=== PATIENT | female | born 1985 | race Caucasian/White ===

== ENCOUNTER 2016-07-19 10:33 | Emergency (ER) | payer BC ==
--- NOTE | ~2016-07-19 | ER ---
PATIENT'S NAME: SHELBY SOLIS [facility] AGE: 31 Y [address] ROOM: [place] [address] LOCATION: ED ADMIT DATE: 07/19/2016 ER/Outpatient Report DISCHARGE DATE: 07/19/2016 FAMILY PHYSICIAN: Monty Turner MD ATTENDING PHYSICIAN: Phi Posada Seen at 1100 hours. HISTORY OF PRESENT ILLNESS: The patient is a 31-year-old female who presents complaining of right upper quadrant pain started earlier today. The patient also complained of some loose stools in the last 24 hours. Pain quality valenzuela, is described as sharp. It did not radiate to the back. She denies any urinary symptoms of burning or frequency. ALLERGIES: KETEK AND LATEX. CURRENT MEDICATIONS: Include, 1. Clindamycin. 2. Zoloft. MEDICAL HISTORY: depression. She has had a recent upper respiratory infection. She does have a history of kidney stones requiring stents x4. SOCIAL HISTORY: Nonsmoker. Denies alcohol. Currently breast feeding. REVIEW OF SYSTEMS: GENERAL: No fevers or chills. HEAD AND EENT. Negative. RESPIRATORY: No shortness of breath or cough. CARDIOVASCULAR: No recent chest pain or palpitations. GASTROINTESTINAL: Right upper quadrant pain, it feels like it is underneath her ribs, minimal radiation to her back. She has had some loose stools. No vomiting. GENITOURINARY: No burning, frequency, urgency, or blood present. PHYSICAL EXAMINATION: VITAL SIGNS: Her temperature is 98, respiratory rate 20, pulse 88, and O2 sats 99%. GENERAL APPEARANCE: White female, well nourished, somewhat overweight, oriented x3. PATIENT'S NAME: SHELBY SOLIS [facility] AGE: 31 Y [address] ROOM: [place] [id number] LOCATION: [facility] ADMIT DATE: 07/19/2016 ER/Outpatient Report DISCHARGE DATE: 07/19/2016 FAMILY PHYSICIAN: Monty Turner MD ATTENDING PHYSICIAN: Phi Posada HEENT: Head: Normocephalic. Eyes: PERRL. No icterus. Nose: Airways patent. Septum midline. Mouth: Teeth in good repair. Buccal membranes moist. LUNGS: Clear throughout. HEART: Rhythm appeared regular. ABDOMEN: Some tenderness, right upper quadrant. No rebound. No guarding. Bowel sounds were active. EXTREMITIES: No peripheral edema. LABORATORY WORK: White count was 5.5, her hemoglobin 13.6, her ANC was 3.0. Urine was negative. CMS: She had slightly elevated AST at 75, lipase is 257, within normal values. Her ultrasound, right upper quadrant and gallbladder, tech reported that the gallbladder was contracted, did not appear to be inflamed and no presence of stones. ASSESSMENT: 1. Right upper quadrant pain. 2. History of kidney stones. 3. History of depression. PLAN: The patient while here in the emergency room was given 2 Hampton which did relieve her pain. She was discharged with a script for Hampton to take 1 or 2 every 4-6 hours. Clear liquids for the rest of the day. Low-fat diet. Recommend she follow up with her primary care over the next 48 hours, especially if the pain continues. ZULEMA DÍAZ FOR MD JENIFFER GOMEZ/karl /[id number] d: 07/20/16 0116 t: 08/11/16 0602, OUTPATIENT REPORT
[~2016-07-19 10:33] MED LIST: ACETAMINOPHEN325 MG PO; DERMOPLAST SPRA56 GM TOP; FEOSOL325 MG PO; FLAGYL250 MG; LANSINOH7 GM TOP; MYCELEX10 MG; NILSTAT60 ML PO; PERCOCET 5-3251 EACH PO; PRENATAL 1+1)(P1 TAB PO; PRILOSEC10 MG PO; SURFAK240 MG PO
[2016-07-19 11:24] LABS: BASOPHIL # 0.1 K/uL (0.0-0.2); BASOPHIL % 0.9 %; EOSINOPHIL # 0.1 K/uL (0.0-0.5); EOSINOPHIL % 2.4 %; HEMATOCRIT 41.6 % (33.0-46.0); HEMOGLOBIN 13.6 g/dL (11.0-15.0); IMMATURE GRANULOCYTE % 0.2 %; LYMPHOCYTE # 1.9 K/uL (0.8-4.0); LYMPHOCYTE % 34.2 %; MCH 27.5 pg (27.0-34.0); MCHC 32.7 gm/dL (32.0-36.5); MCV 84.2 fl (83.0-98.0); MONOCYTE # 0.4 K/uL (0.0-1.0); MONOCYTE % 6.9 %; NEUTROPHIL % 55.4 %; NRBC % 0 /100WBC (0-0.00); PLATELET COUNT 248 K/uL (150-450); RBC 4.94 M/uL (3.50-5.50); RDW-CV 13.3 % (11.9-14.6); WBC 5.5 K/uL (4.0-11.0)
[2016-07-19 11:24] LABS: BILIRUBIN URINE NEGATIVE (NEGATIVE); BLOOD URINE NEGATIVE /UL (NEGATIVE); COLOR URINE YELLOW (YELLOW); GLUCOSE URINE NEGATIVE (NEGATIVE); KETONE URINE NEGATIVE (NEGATIVE); LEUKOCYTES URINE NEGATIVE /UL (NEGATIVE); NITRITE URINE NEGATIVE (NEGATIVE); PROTEIN URINE NEGATIVE (NEGATIVE); TURBIDITY URINE CLEAR (CLEAR); UROBILINOGEN URINE NORMAL (NORMAL)
[2016-07-19 11:40] LABS: ALBUMIN 3.9 gm/dL (3.5-5.0); ALK PHOS 113 IU/L (33-138); ALT 68 IU/L (12-78); ANION GAP 9.9 (10.0-19.0); AST 75 IU/L (10-40); BLOOD UREA NITROGEN 16 mg/dL (6-24); CALCIUM 9.3 mg/dL (8.5-10.5); CHLORIDE 107 mMol/L (96-110); CO2 28 mMol/L (22-32); CREATININE 0.8 mg/dL (0.5-1.1); ESTIMATED GFR (MDRD EQUATION) > 60; POTASSIUM 3.9 mMol/L (3.7-5.1); SODIUM 141 mMol/L (135-145); TOTAL BILIRUBIN 0.6 mg/dL (0.0-1.5); TOTAL PROTEIN 7.9 g/dL (6.0-8.4)
[2016-07-29] MEDS ORDERED: ZOLOFT50 MG PO (16:41)
[2016-07-29] MEDS ORDERED: HYDROCODON-ACE1 EAC4 PO (16:41)
== END 2016-07-19 13:40 | disposition disaster alternative care site (69) ==
LOC: GMED 10:33
PROVIDERS: Emergency Medicine
DX: R10.11 Right upper quadrant pain (principal); Z91.040 Latex allergy status; Z88.8 Allergy status to other drugs, medicaments and biological substances

== ENCOUNTER 2016-07-28 14:38 | Emergency (ER) | payer BC ==
--- NOTE | ~2016-07-28 | CON ---
PATIENT'S NAME: MONTSE SOLIS [facility] AGE: 31 Y [address] ROOM: [place] [address] LOCATION: [facility] ADMIT DATE: 07/28/2016 Consultation DISCHARGE DATE: 07/28/2016 FAMILY PHYSICIAN: Monty Turner MD ATTENDING PHYSICIAN: Phi Posada REFERRING PHYSICIAN: Phi Posada MD CHIEF COMPLAINT: Abdominal pain. HISTORY OF PRESENT ILLNESS: The patient is a 31-year-old female who is obese and has 5 children. She had presented approximately 2 weeks ago with acute onset of abdominal pain, this was in the right upper quadrant. She had some nausea with this. She had an ultrasound performed that revealed no evidence of cholelithiasis. She continued to have an intermittent abdominal pain, even today had severe pain after eating. She says that she has had this small episode almost daily after eating, but it was worse today, she was concerned about her heart. She described no significant chest pain-type symptoms, all pain in the right upper quadrant. A CT scan was performed, which revealed a fatty liver, but no other significant abnormalities. She also had a HIDA scan which revealed an ejection fraction of 12%. She had normal white blood cell count, no fevers. Currently, her pain is much better. I was asked to see her regarding her gallbladder. She has no known history of liver disease. She has never had ulcers. Again, no fevers, no diverticulitis. She said that her pain seems to come on after eating. CURRENT MEDICATIONS: 1. Ahmeek. 2. Zoloft. ALLERGIES: LATEX AND KEFLEX. SOCIAL HISTORY: She is a nonsmoker and nondrinker. and has 5 children. CURRENT ILLNESSES: Depression. PHYSICAL EXAMINATION: GENERAL: She is an obese, 31-year-old female, in no acute distress. VITAL SIGNS: Pulse is 72, respiratory rate is 26, and temperature is 97.2. Her weight is 108 kilos. HEENT: Head is normocephalic, atraumatic. Eyes are anicteric. NECK: Supple. There is no lymphadenopathy. PATIENT'S NAME: MONTSE SOLIS [facility] AGE: 31 Y [address] ROOM: [place] [address] LOCATION: [facility] ADMIT DATE: 07/28/2016 Consultation DISCHARGE DATE: 07/28/2016 FAMILY PHYSICIAN: Monty Turner MD ATTENDING PHYSICIAN: Phi Posada HEART: Regular rate and rhythm. No murmurs audible. LUNGS: Clear to auscultation bilaterally. ABDOMEN: Obese. She does have mild tenderness to palpation in the right upper quadrant. No rebound or guarding. Bowel sounds are active. EXTREMITIES: Warm. No edema. NEUROLOGIC: Gross motor is intact. ASSESSMENT: Biliary colic. PLAN: I have discussed the findings with Montse. We discussed her symptomatology and her findings. This does seem consistent with biliary colic. Her pain is improving, and I think it is reasonable to allow her to be discharged. We will plan on performing an outpatient cholecystectomy. We did discuss surgery and risks of surgery, which include bleeding, infection, bile leak, bile duct injury, injury to other viscera, as well as ongoing symptomatology. We discussed chronically loose stools. She understands these risks and would like to proceed. We will schedule this in the near future. Currently, she will be able to go home. She has Ahmeek at home for her intermittent pain. If she would get unrelenting pain, fevers, nausea, and vomiting, would return for repeat evaluation. MD BALDOMERO VUONGO/modl /[id number] d: 07/28/16 2210 t: 08/07/16 1502, CONSULTATION REPORT
--- NOTE | ~2016-07-28 | ER ---
PATIENT'S NAME: SHELBY SOLIS [facility] AGE: 31 Y [address] ROOM: [place] [address] LOCATION: ED ADMIT DATE: 07/28/2016 ER/Outpatient Report DISCHARGE DATE: 07/28/2016 FAMILY PHYSICIAN: Monty Turner MD ATTENDING PHYSICIAN: Phi Posada CHIEF COMPLAINT: Abdominal pain. HISTORY OF PRESENT ILLNESS: The patient states that the pain started around 12:30 or 1 o'clock today. The pain has been persistent. It is aching and sharp in nature. It is located in the right upper abdomen and occasionally radiates through to her back. She has had similar pain in the past. She has been being evaluated for gallbladder issues. She recently did have a baby. She states she has taken some hydrocodone with no improvement. No other acute issues. PAST MEDICAL HISTORY: Documented on the record and reviewed by me. SOCIAL HISTORY: Documented on the record and reviewed by me. MEDICATIONS: Documented on the record and reviewed by me. ALLERGIES: DOCUMENTED ON THE RECORD AND REVIEWED BY ME. REVIEW OF SYSTEMS: All systems reviewed and negative except as noted in the HPI. PHYSICAL EXAMINATION: VITAL SIGNS: Blood pressure 148/95, pulse 72, respiratory rate is 26, temp 97.2, SpO2 is 97% on room air. Pain is rated at 7/10. GENERAL: An age appropriate female, in no obvious pain. No distress, sitting on the exam table. NEUROLOGIC: Awake and alert. GCS is 15. No focal deficits or asymmetry appreciated on exam. No cranial nerve deficits are obvious. HEENT: Normocephalic, atraumatic. Eyes are PERRL. Oropharynx is clear. NECK: Supple. Trachea is midline. CHEST: Heart is regular rate and rhythm with no murmurs. LUNGS: Clear to auscultation bilateral with no rhonchi, wheezes, or rales. ABDOMEN: Soft, obese, with no focal tenderness to palpation. No obvious masses. King's sign was equivocal. PATIENT'S NAME: SHELBY SOLIS [facility] AGE: 31 Y [address] ROOM: [place] [address] LOCATION: ED ADMIT DATE: 07/28/2016 ER/Outpatient Report DISCHARGE DATE: 07/28/2016 FAMILY PHYSICIAN: Monty Turner MD ATTENDING PHYSICIAN: Phi Posada BACK: Nontender to palpation throughout. No CVA tenderness. EXTREMITIES: Warm and well perfused. SKIN: Warm, dry, and intact. Note, abdominal and chest exam is limited by body habitus. LABORATORY DATA AND X-RAYS: CT scan of the abdomen was unremarkable except for fatty liver per Radiology. Labs: Serum lactate is 1.8. WBC 6.0, hemoglobin 13.7, platelets of 258. INR is 1.0. Amylase, lipase, GGT are 88, 427, and 47 respectively. HCG is below threshold. Sodium 143, potassium 3.8, chloride 108, CO2 is 23, BUN is 12, creatinine 0.8. GFR is greater than 60. Total bilirubin 0.3, AST of 81, ALT of 65. Procalcitonin is below threshold. Serum was negative. IMPRESSION: 1. Biliary colic. 2. Extremely mild pancreatitis. EMERGENCY DEPARTMENT COURSE: The patient was seen and evaluated as above. Abdominal pain was the chief concern. Given her history, hepatobiliary pathology is most likely. Within the last 2 weeks, she has had an ultrasound showing contracted gallbladder but no stones or cholecystitis. She had a HIDA scan on the , which showed delayed biliary emptying. Her pain is consistent with biliary colic versus extremely mild pancreatitis. Based on her labs and presentation, I did have Dr. Garcia, surgeon, evaluate the patient. We will let her go home. I will change her pain medication to Dilaudid. She received a 0.5 mg in the emergency department and had almost complete resolution of all of her symptoms. She was otherwise doing well. She is acceptable with this pain at this time. She will contact Dr. Garcia's office tomorrow if she has not heard from them regarding scheduling with a plan for elective cholecystectomy on . All questions were answered, and the patient was discharged in good condition. MD MY GOMEZ/karl /[id number] d: 07/28/162248 t: 03/28/17 0603, OUTPATIENT REPORT
[2016-07-28 15:10] LABS: BASOPHIL # 0.1 K/uL (0.0-0.2); BASOPHIL % 0.8 %; EOSINOPHIL # 0.1 K/uL (0.0-0.5); EOSINOPHIL % 1.5 %; HEMATOCRIT 40.2 % (33.0-46.0); HEMOGLOBIN 13.7 g/dL (11.0-15.0); IMMATURE GRANULOCYTE % 0.2 %; LYMPHOCYTE % 32.8 %; MCHC 34.1 gm/dL (32.0-36.5); MCV 82.2 fl (83.0-98.0); MONOCYTE # 0.4 K/uL (0.0-1.0); MONOCYTE % 6.7 %; MPV 9.5 fl (9.4-12.4); NEUTROPHIL # (ANC) 3.5 K/uL (1.8-7.8); NRBC % 0 /100WBC (0-0.00); PLATELET COUNT 258 K/uL (150-450); RBC 4.89 M/uL (3.50-5.50); RDW-CV 13.2 % (11.9-14.6)
[2016-07-28 15:24] LABS: PROTIME 10.2 SECONDS (9.6-11.1); PTT 29 SECONDS (25-32)
[2016-07-28 15:30] LABS: ALBUMIN 3.9 gm/dL (3.5-5.0); ALK PHOS 106 IU/L (33-138); ALT 65 IU/L (12-78); BLOOD UREA NITROGEN 12 mg/dL (6-24); CALCIUM 9.2 mg/dL (8.5-10.5); CHLORIDE 108 mMol/L (96-110); CO2 23 mMol/L (22-32); CREATININE 0.8 mg/dL (0.5-1.1); ESTIMATED GFR (MDRD EQUATION) > 60; SODIUM 143 mMol/L (135-145); TOTAL PROTEIN 7.8 g/dL (6.0-8.4)
[2016-07-28 15:32] LABS: ANION GAP 15.8 (10.0-19.0); AST 81 IU/L (10-40); POTASSIUM 3.8 mMol/L (3.7-5.1); TOTAL BILIRUBIN 0.3 mg/dL (0.0-1.5)
[2016-07-29] MEDS ORDERED: ZOLOFT50 MG PO (16:41)
[2016-07-29] MEDS ORDERED: HYDROCODON-ACE1 EAC4 PO (16:41)
== END 2016-07-28 18:00 | disposition disaster alternative care site (69) ==
LOC: GMED 14:38
PROVIDERS: Emergency Medicine
DX: K80.50 Calculus of bile duct without cholangitis or cholecystitis without obstruction (principal); K85.90 Acute pancreatitis without necrosis or infection, unspecified; F32.9 Major depressive disorder, single episode, unspecified; Z88.1 Allergy status to other antibiotic agents; Z91.040 Latex allergy status; Z79.899 Other long term (current) drug therapy
CPT/HCPCS: J1170; J2405; J7030; Q9967

== ENCOUNTER → 2016-07-30 | Day surgery (SDC) | payer BC ==
[~2016-07-30] VITALS: Ht 172.7 cm; Wt 124.0 kg
[~2016-07-30] MED LIST changes: +HYDROCODON-ACE1 EAC4 PO; +ZOLOFT50 MG PO
--- NOTE | ~2016-07-30 | OR ---
PATIENT'S NAME: SHELBY SOLIS [facility] AGE: 31 Y [address] ROOM: [place] [address] [place] [facility] [place]: 07/30/2016 OR/Procedure Report DISCHARGE DATE: FAMILY PHYSICIAN: Monty Turner MD ATTENDING PHYSICIAN: Mychal Mosquera SURGEON: Mychal Mosquera MD ARCHITECTURAL PROJECT CAPTAIN: Elpidio Seaman PA-C DATE OF PROCEDURE: 07/30/2016 PREOPERATIVE DIAGNOSIS: Biliary dyskinesia. POSTOPERATIVE DIAGNOSIS: Biliary dyskinesia. PROCEDURE PERFORMED: Laparoscopic cholecystectomy. FINDINGS: A critical window was able to be obtained. No stones were present. ESTIMATED BLOOD LOSS: 20 mL. COMPLICATIONS: None. INDICATIONS: The patient is a 31-year-old female who presented with abdominal pain, colicky in nature, with inability to eat. She was found to have an abnormal HIDA scan. We discussed cholecystectomy as well as other potential etiologies of her abdominal pain and risks of surgery which include bleeding, infection, ongoing pain, bile leak, bile duct injury, injury to other viscera, as well as chronic diarrhea. She understood the risks and elected to proceed. DESCRIPTION OF PROCEDURE: The patient was taken to the operating room. She was placed supine, given IV sedation, and subsequently intubated. The abdomen was prepped with ChloraPrep and sterilely draped. Local anesthetic was infiltrated just superior to the umbilicus. A transverse incision was created. The abdomen was elevated, Veress needle was inserted, and pneumoperitoneum was induced. Following this, a 5 mm trocar was inserted, followed by insertion of the camera. There was no injury from initial trocar placement. Three more trocars were then positioned; an 11 mm epigastric, and two 5 mm right subcostal ports. Skin overlying the peritoneum was first anesthetized prior to making the incisions. All 3 of these trocars were inserted under direct visualization. The gallbladder was grasped and was elevated over the dome of the liver. The liver was noted to be quite fatty. The infundibulum was then grasped and retracted inferiorly and laterally to expose the Calot triangle. The cystic duct and artery were dissected around circumferentially. A critical window was able to be obtained. Both of these structures were doubly clipped and divided. The gallbladder was then removed from the liver bed using electrocautery. This was grasped and brought out PATIENT'S NAME: SHELBY SOLIS [facility] AGE: 31 Y [address] ROOM: [place] [address] [place] [facility]: 07/30/2016 OR/Procedure Report DISCHARGE DATE: FAMILY PHYSICIAN: Monty Turner MD ATTENDING PHYSICIAN: Mychal Mosquera through the epigastric port site. The liver bed was then inspected. It appeared hemostatic. Clips appeared to be in good position on the cystic duct and artery. The area was irrigated. The fluid was removed. The pneumoperitoneum was released. Prior to releasing the pneumoperitoneum, we did use an Endo Close to close the epigastric incision. The pneumoperitoneum was released. All the trocars had been removed. The skin edges of all 4 trocar sites were closed with 4-0 Monocryl sutures. Steri-Strips and sterile dressings were placed. The patient was extubated and sent to Recovery in good condition. MYCHAL MOSQUERA MD BJO/modl /[id number] d: 07/30/161841 t: 08/07/16 1502, OPERATIVE SUMMARY
== END | disposition disaster alternative care site (69) ==
LOC: GPOC 07-29 13:00 → GSDC 09:54
PROC: 0FT44ZZ Resection of Gallbladder, Percutaneous Endoscopic Approach (ICD-10-PCS; principal; 2016-07-30)
DX: I89.8 Other specified noninfective disorders of lymphatic vessels and lymph nodes (principal); K82.8 Other specified diseases of gallbladder; J45.909 Unspecified asthma, uncomplicated; F32.9 Major depressive disorder, single episode, unspecified; E66.9 Obesity, unspecified; Z88.1 Allergy status to other antibiotic agents; Z91.040 Latex allergy status
CPT/HCPCS: J0694; J1100; J1170; J1885; J2001; J2405; J3010; J7120

== ENCOUNTER 2016-08-12 19:22 | Emergency (ER) | payer BC ==
--- NOTE | ~2016-08-12 | ER ---
PATIENT'S NAME: SHELBY SOLIS [facility] AGE: 31 Y [address] ROOM: [place] [address] LOCATION: [facility] ADMIT DATE: 08/12/2016 ER/Outpatient Report DISCHARGE DATE: 08/12/2016 FAMILY PHYSICIAN: Monty Turner MD ATTENDING PHYSICIAN: Angelika Canchola HISTORY OF PRESENT ILLNESS: A 31-year-old female, who presents with right upper quadrant pain that has been ongoing for 2 weeks. She denies any nausea; vomiting; diarrhea; blood in stool, vomit, or urine. Any constipation, fever, chills, or urinary symptoms. She says that this has been ongoing for a while. She was diagnosed with cholelithiasis and she recently had her gallbladder removed. She had a laparoscopic cholecystectomy done by Dr. Garcia. The patient says that she still has pain after her surgery. She had been back to see Dr. Garcia as well and she was told that it was probably just typical postop pain, but the patient says that she feels like she should be getting better at this time and she is not. She has been taking hydrocodone up until 3 days ago when she ran out. She reports that she has taken ibuprofen, but is not helping at this time. No other complaints at this time. No fever or chills. PAST MEDICAL HISTORY: Includes morbid obesity and asthma. PAST SURGICAL HISTORY: Includes cholecystectomy, kidney stone, and stents. SOCIAL HISTORY: She does not smoke, drink, or use any drugs. MEDICATIONS: Please see med list. ALLERGIES: KEFLEX AND LATEX. REVIEW OF SYSTEMS: Reviewed by me are negative with the exception of those discussed in the HPI. PHYSICAL EXAMINATION: VITAL SIGNS: Her height is 5 feet 8 inches, her weight is 127.6 kilos, her pulse is 78 beats per minute, respiratory rate is 20, blood pressure is 145/77, temperature is 97.9, and saturations are 97% on room air. GENERAL: The patient does not appear in any acute distress. She looks mildly uncomfortable, but nontoxic. She is not jaundiced or anything. HEENT: Pupils are equal and reactive to light. She has no scleral icterus. PATIENT'S NAME: SHELBY SOLIS [facility] AGE: 31 Y [address] ROOM: [place], [place] [address] LOCATION: [facility] ADMIT DATE: 08/12/2016 ER/Outpatient Report DISCHARGE DATE: 08/12/2016 FAMILY PHYSICIAN: Monty Turner MD ATTENDING PHYSICIAN: Angelika Canchola She is alert and oriented x4, walks into the ER and moves all extremities, got onto the bed herself. CHEST: She has no respiratory distress. She has normal breath sounds. No wheezing, rales, or rhonchi. Regular rate and rhythm. The patient feels warm and well perfused. Mildly hypertensive at 145/77. ABDOMEN: Where the trocar incisions are, they look clean and well healed. Some mild bruising, but she is mildly tender in the right upper quadrant. Really right over one of the incisions sites. It is not red. It is not warm to touch. There is no purulence or purulent drainage and there is no fluctuance either. She has no rebound or guarding. SKIN: Warm, dry, and intact. EMERGENCY ROOM COURSE: I discussed with the patient, concerns for something like biliary leak, etc.; however, she has no other symptoms except for pain. We did give her Amonate for pain, which the patient tolerated really well and she is feeling a lot better now. She was able to go to sleep while we waited for the rest of the labs. So, the chemistry showed sodium 142, potassium 3.8, chloride 108, CO2 25, anion gap 12.8, glucose 98, BUN 20, creatinine 0.9, alkaline phosphatase 103, AST 56, ALT 53, GFR greater than 60. Bilirubin was 0.2. White count was 6.8, H and H is 12.2/36.5, platelets are 258. No bandemia. Urine was unremarkable. Procalcitonin was less than 0.05. Lipase mildly elevated at 450, but not 3 times above the upper limit of normal. So, we would not consider that pancreatitis, plus she has no epigastric tenderness. Discussed this with the patient. I do also think this is just postop pain. We will give her script for some Amonate, but then she should follow up with Dr. Garcia. She understands the reasons to come back to the ER sooner. IMPRESSION: Right upper quadrant pain, status post cholecystectomy. MD LESLEY GONZALES/karl /[id number] d: 08/13/16 0423 t: 08/14/16 1816, OUTPATIENT REPORT
[2016-08-12 19:49] LABS: BILIRUBIN URINE NEGATIVE (NEGATIVE); BLOOD URINE 10 /UL (NEGATIVE); COLOR URINE YELLOW (YELLOW); GLUCOSE URINE NEGATIVE (NEGATIVE); KETONE URINE NEGATIVE (NEGATIVE); LEUKOCYTES URINE 25 /UL (NEGATIVE); NITRITE URINE NEGATIVE (NEGATIVE); PROTEIN URINE NEGATIVE (NEGATIVE); SPEC GRAVITY URINE 1.025 (1.003-1.035); TURBIDITY URINE CLEAR (CLEAR); UROBILINOGEN URINE NORMAL (NORMAL)
[2016-08-12 19:55] LABS: BACTERIA URINE MODERATE (NEGATIVE); RBC URINE 0-2 #/HPF (NEGATIVE); WBC URINE 0-2 #/HPF (NEGATIVE)
[2016-08-12 20:00] LABS: BASOPHIL # 0.1 K/uL (0.0-0.2); BASOPHIL % 0.9 %; EOSINOPHIL # 0.4 K/uL (0.0-0.5); EOSINOPHIL % 5.4 %; HEMATOCRIT 36.5 % (33.0-46.0); HEMOGLOBIN 12.2 g/dL (11.0-15.0); IMMATURE GRANULOCYTE % 0.1 %; LYMPHOCYTE # 1.9 K/uL (0.8-4.0); LYMPHOCYTE % 27.4 %; MCH 28.2 pg (27.0-34.0); MCHC 33.4 gm/dL (32.0-36.5); MCV 84.5 fl (83.0-98.0); MONOCYTE # 0.6 K/uL (0.0-1.0); MONOCYTE % 8.1 %; MPV 9.1 fl (9.4-12.4); NEUTROPHIL % 58.1 %; NRBC % 0 /100WBC (0-0.00); PLATELET COUNT 258 K/uL (150-450); RBC 4.32 M/uL (3.50-5.50); RDW-CV 13.2 % (11.9-14.6); WBC 6.8 K/uL (4.0-11.0)
[2016-08-12 20:20] LABS: ALBUMIN 3.6 gm/dL (3.5-5.0); ALK PHOS 103 IU/L (33-138); ALT 53 IU/L (12-78); ANION GAP 12.8 (10.0-19.0); AST 56 IU/L (10-40); BLOOD UREA NITROGEN 20 mg/dL (6-24); CALCIUM 8.8 mg/dL (8.5-10.5); CHLORIDE 108 mMol/L (96-110); CO2 25 mMol/L (22-32); CREATININE 0.9 mg/dL (0.5-1.1); ESTIMATED GFR (MDRD EQUATION) > 60; POTASSIUM 3.8 mMol/L (3.7-5.1); SODIUM 142 mMol/L (135-145); TOTAL BILIRUBIN 0.2 mg/dL (0.0-1.5); TOTAL PROTEIN 7.4 g/dL (6.0-8.4)
== END 2016-08-12 21:00 | disposition disaster alternative care site (69) ==
LOC: GMED 19:22
PROVIDERS: Emergency Medicine
DX: R10.11 Right upper quadrant pain (principal); E66.01 Morbid (severe) obesity due to excess calories; Z90.49 Acquired absence of other specified parts of digestive tract; Z87.442 Personal history of urinary calculi; Z88.1 Allergy status to other antibiotic agents; Z91.040 Latex allergy status